=== PATIENT | female | born 1995 | race Two or more races ===

== ENCOUNTER 2024-05-13 09:48 | Emergency (ER) | payer BC ==
[~2024-05-13] VITALS: Ht 160 cm; Wt 59.0 kg
[2024-05-13 09:50] VITALS: BP 117/69; TEMP 99.7
[2024-05-13 10:13] VITALS: O2SAT 97
== END 2024-05-13 10:13 | disposition home or self-care (01) ==
LOC: ER 10:00
DX: J06.9 Acute upper respiratory infection, unspecified (principal); B97.89 Other viral agents as the cause of diseases classified elsewhere; Z60.2 Problems related to living alone